=== PATIENT | male | born 1980 | race Two or more races ===

== ENCOUNTER 2024-10-02 23:16 | Emergency (ER) | payer BC, OTHER ==
[~2024-10-02] VITALS: Ht 167.6 cm; Wt 83.0 kg
[2024-10-02 23:53] VITALS: BP 149/92; PULSE 94; RESP 20; O2SAT 98
--- NOTE | 2024-10-03 00:03 | ED.PDOC ---
History of Present Illness HPI Comments 44 year old male presents to the ED with a chief complaint of sore throat onset 3 days. Patient states he is currently experiencing sore throat, pain with swallowing saliva and cough. Patient's son is currently experiecing similar symptoms. Denies chest pain, shortness of breath, dizziness, headache, nausea, vomiting, diarrhea. No other symptoms or modifying factors present at this time. Chief Complaint: Sore Throat Time Seen by MD: 23:55 Reviewed Notes: Medications, Allergies Allergies: Coded Allergies: NO KNOWN ALLERGIES (Unverified , 10/02/24) Information Source: Patient Mode of Arrival: Ambulatory Severity: Moderate Timing: Days Duration: Since onset Prehospital treatment: None Past Medical History PAST MEDICAL HISTORY: Denies Surgical History: Denies all surgeries Family History Family History: Reviewed,noncontributory to illness, No family hx of Cancer, No family hx of DM, No family hx of Heart nirmala, No family hx of HTN, No family hx ofKidney nirmala, No family hx of Liver nirmala, No family hx of Lung nirmala, No family hx of Stroke Social History Smoker: Non-Smoker Alcohol: Denies ETOH Use Drugs: Denies Drug Use Lives In: Home Constitutional: denies: chills, diaphoresis, fatigue, fever, malaise, sweats, weakness, others EENTM: reports: throat pain; denies: blurred vision, double vision, ear bleeding, ear discharge, ear drainage, ear pain, ear ringing, eye pain, eye redness, hearing loss, mouth pain, mouth swelling, nasal discharge, nose bleeding, nose congestion, nose pain, photophobia, tearing, throat swelling, voice changes, others Respiratory: reports: cough; denies: hemoptysis, orthopnea, SOB at rest, shortness of breath, SOB with excertion, stridor, wheezing, others Cardiovascular: denies: chest pain, dizzy spells, diaphoresis, Dyspnea on exertion, edema, irregular heart beat, left arm pain, lightheadedness, palpitations, PND, syncope, others Gastrointestinal: denies: abdomen distended, abdominal pain, blood streaked bowels, constipated, diarrhea, dysphagia, difficulty swallowing, hematemesis, melena, nausea, poor appetite, poor fluid intake, rectal bleeding, rectal pain, vomiting, others Genitourinary: denies: burning, dysuria, flank pain, frequency, hematuria, incontinence, penile discharge, penile sore, pain, testicle pain, testicle swelling, urgency, others Neurological: denies: dizziness, fainting, headache, left sided numbness, left sided weakness, numbness, paresthesia, pre-existing deficit, right sided numbness, right sided weakness, seizure, speech problems, tingling, tremors, weakness, others Musculoskeletal: denies: back pain, gout, joint pain, joint swelling, muscle pain, muscle stiffness, neck pain, others Integumetry: denies: bruises, change in color, change in hair/nails, dryness, laceration, lesions, lumps, rash, wounds, others Allergic/Immunocompromised: denies: Difficulty Healing, Frequent Infections, Hives, Itching, others Hematologic/Lymphatic: denies: anemia, blood clots, easy bleeding, easy bruising, swollen glands, others Endocrine: denies: excessive hunger, excessive sweating, excessive thirst, excessive urination, flushing, intolerance to cold, intolerance to heat, unexplained weight gain, unexplained weight loss, others Psychiatric: denies: anxiety, bipolar disorder, depression, hopeless, panic disorder, schizophrenia, sleepless, suicidal, others All Other Systems: Reviewed and Negative Physical Exam General Appearance: No Apparent Distress, Normal HEENT: TMs Normal, Other (Erythema to OP) Neck: Full Range of Motion, Non-Tender, Normal, Normal Inspection Respiratory: Chest Non-Tender, Lungs Clear, No Accessory Muscle Use, No Respiratory Distress, Normal Breath Sounds Cardiovascular: No Edema, No JVD, No Murmur, No Gallop, Normal Peripheral Pulses, Regular Rate/Rhythm Breast Exam: Deferred Gastrointestinal: No Organomegaly, Non Tender, No Pulsatile Mass, Normal Bowel Sounds, Soft Genitalia: Deferred Pelvic: Deferred Rectal: Deferred Extremities: No calf tenderness, Normal capillary refill, Normal inspection, Normal range of motion, Non-tender, No pedal edema Musculoskeletal : Apperance: Normal Neurologic: Alert, sample preparation supervisor II-XII nml as Tested, No Motor Deficits, Normal Affect, Normal Mood, No Sensory Deficits Cerebellar Function: Normal Reflexes: Normal Skin: Dry, Normal Color, Warm Lymphatic: No Adenopathy Was a procedure done? Was a procedure done?: No Differential Dx Considerations may include: strep pharyngitis, mononucleosis, peritonsillar abscess, viral pharyngitis X-Ray, Labs, Meds, VS Vital Signs Date Time Temp Pulse Resp B/P (MAP) Pulse Ox O2 Delivery O2 Flow Rate FiO2 10/02/24 23:53 99.6 94 20 149/92 (111) 98 Lab Test 10/03/24 01:42 Range/Units Group A Streptococcus Rapid Positive Time of 1ST Reevaluation: 00:25 Reevaluation 1ST: Unchanged Patient Education/Counseling: Diagnosis, Treatment, Prognosis, Need For Follow Up Family Education/Counseling: Diagnosis, Treatment, Prognosis, Need For Follow U p Additional Information I reviewed the following notes from patient's past medical encounters: The following tests were ordered, and results were reviewed by me: rapid strep screen - throat I discussed treatment and results with medical personnel and: patient Departure 1 Departure Time of Disposition: 02:25 Impression: Primary Impression: Strep pharyngitis Disposition: 01 HOME / SELF CARE / HOMELESS Condition: Good Discharged With: Self, Relative (Mother) Critical Care Note Critical Care Time?: No Stability Stability form required: No I personally scribed for RY RIVERS MD ([email or web address]) on 10/03/24 at 00:03. Electronically submitted by Tiffany Padilla ([email or web address]). RY RIVERS MD Oct 03, 2024 00:03
[2024-10-03 02:18] LABS: Rapid Strep A Screen-Throat Positive
[2024-10-03] MEDS: PENICILLIN G BENZ 1,200,000 UNITS/2 ML SYRG IM ONE (02:25)
[2024-10-04] MEDS ORDERED: AMOX500C2 PO (07:36)
== END 2024-10-03 02:41 | disposition home or self-care (01) ==
LOC: ER 23:16
DX: J02.0 Streptococcal pharyngitis (principal)
CPT/HCPCS: 87880; 96372; 99283; J0561

== ENCOUNTER 2024-10-04 05:33 | Emergency (ER) | payer BC ==
[~2024-10-04] VITALS: Ht 167.6 cm; Wt 80.2 kg
--- NOTE | 2024-10-04 06:46 | ED.PDOC ---
History of Present Illness HPI Comments 44 y/o M presents with c/o throat pain and swelling w/associated difficulty swallowing, today. Patient endorses returning to the ED following most recent visit on 10/02/24, due to symptoms still persisting. Patient comments on being informed on having "Strep throat" and treated via "shot" administration in the ED w/o prescription given then. He denies having any shortness of breath, fever, chills, or other associated symptoms or modifiers at this time. Chief Complaint: Sore Throat Time Seen by MD: 06:20 Reviewed Notes: Nurses Notes, Medications, Allergies Allergies: Coded Allergies: NO KNOWN ALLERGIES (Unverified , 10/02/24) Information Source: Patient Mode of Arrival: Ambulatory Severity: Moderate Timing: Days Duration: Since onset Prehospital treatment: None Past Medical History PAST MEDICAL HISTORY: Denies Surgical History: Denies all surgeries Family History Family History: Reviewed,noncontributory to illness, No family hx of Cancer, No family hx of DM, No family hx of Heart nirmala, No family hx of HTN, No family hx ofKidney nirmala, No family hx of Liver nirmala, No family hx of Lung nirmala, No family hx of Stroke Social History Smoker: Non-Smoker Alcohol: Denies ETOH Use Drugs: Denies Drug Use Lives In: Home EENTM: reports: throat pain, throat swelling, others (difficulty swallowing ) All Other Systems: Reviewed and Negative (negative unless otherwise stated above or in HPI) Physical Exam General Appearance: Moderate Distress HEENT: Pharyngeal Erythema, Tonsillar Exudate Neck: Full Range of Motion, Non-Tender, Normal, Normal Inspection Respiratory: Chest Non-Tender, Lungs Clear, No Accessory Muscle Use, No Respiratory Distress, Normal Breath Sounds Cardiovascular: No Edema, No JVD, No Murmur, No Gallop, Normal Peripheral Pulses, Regular Rate/Rhythm Breast Exam: Deferred Gastrointestinal: No Organomegaly, Non Tender, No Pulsatile Mass, Normal Bowel Sounds, Soft Genitalia: Deferred Pelvic: Deferred Rectal: Deferred Extremities: No calf tenderness, Normal capillary refill, Normal inspection, Normal range of motion, Non-tender, No pedal edema Musculoskeletal : Apperance: Normal Neurologic: Alert, architectural associate II-XII nml as Tested, No Motor Deficits, Normal Affect, Normal Mood, No Sensory Deficits Cerebellar Function: Normal Reflexes: Normal Skin: Dry, Normal Color, Warm Peripheral Pulses: 3+ Radial (R), 3+ Radial (L) Lymphatic: No Adenopathy Was a procedure done? Was a procedure done?: No Differential Dx Considerations may include: Step throat X-Ray, Labs, Meds, VS Vital Signs Date Time Temp Pulse Resp B/P (MAP) Pulse Ox O2 Delivery O2 Flow Rate FiO2 10/04/24 05:54 99.5 100 18 136/103 (114) 99 Patient alert. Complaining of sore throat. Was seen here few days ago for similar symptom. Vitals stable. Answering all questions. Has strep throat. Was given Solu-Medrol. Was given Rocephin. Was given prescription of amoxicillin antibiotic. Reviewed his previous visit. Explained to the patient. Was told to follow up with his primary care physician. Was told to come back if there is any problem. Time of 1ST Reevaluation: 06:50 Reevaluation 1ST: Unchanged Patient Education/Counseling: Diagnosis, Treatment Family Education/Counseling: No Family Present Additional Information I reviewed the following notes from patient's past medical encounters: 10/02/24 ED physician documentation I discussed treatment and results with medical personnel Departure 1 Departure Time of Disposition: 07:35 Impression: Primary Impression: Strep pharyngitis Disposition: 01 HOME / SELF CARE / HOMELESS Condition: Good e-Prescriptions Amoxicillin Trihydrate (Amoxicillin) 500 Mg Cap 1 CAP PO TID for 10 Days, #30 CAP Prov: DELIO ADAME MD 10/04/24 Discharged With: Self Critical Care Note Critical Care Time?: No Stability Stability form required: No Heart Score Heart Score: Heart Score Response (Comments) Value History N/A 0 EKG N/A 0 Age N/A 0 Risk Factors N/A 0 Troponin N/A 0 Total 0 I personally scribed for DELIO ADAME MD ([email or web address]) on 10/04/24 at 06:46. Electronically submitted by Robel Ramos ([email or web address]). DELIO ADAME MD Oct 04, 2024 06:46
[2024-10-04] MEDS ORDERED: AMOX500C2 PO (07:36)
[2024-10-04 07:45] VITALS: BP 150/96; PULSE 98; RESP 18; TEMP 99.8; O2SAT 97
[2024-10-04] MEDS: cefTRIAXone SOD 1,000 MG VL IM ONE (07:56)
[2024-10-04] MEDS: methylPREDNISolone SOD SUCC 125 MG/2 ML VL IM ONE (07:56)
== END 2024-10-04 07:50 | disposition home or self-care (01) ==
LOC: ER 05:33
DX: J02.0 Streptococcal pharyngitis (principal)
CPT/HCPCS: 96372; 99284; J0696; J2919